=== PATIENT | male | born 2000 | race Two or more races ===

== ENCOUNTER 2021-02-27 15:55 | Emergency (ER) | payer SELFPAY ==
[~2021-02-27] VITALS: Ht 177.8 cm; Wt 85.7 kg
[2021-02-27 16:17] VITALS: BP 132/69
--- NOTE | 2021-02-27 17:16 | NUR ---
Patient discharged to home in stable condition. Written and verbal after care instructions given. Patient verbalizes understanding of instruction.
== END 2021-02-27 17:16 | disposition home or self-care (01) ==
LOC: ER 16:19
DX: S60.022A Contusion of left index finger without damage to nail, initial encounter (principal); X58.XXXA Exposure to other specified factors, initial encounter; Y93.89 Activity, other specified; Y92.89 Other specified places as the place of occurrence of the external cause; Y99.8 Other external cause status
CPT/HCPCS: 73130-TC